=== PATIENT | male | born 1950 | race African-American/Black ===

== ENCOUNTER 2021-05-27 12:14 | Outpatient (CLI) | payer MEDICARE ==
[2021-05-27 13:27] LABS: Hemoglobin 14.7 g/dL (13.5-17.5); Mean Corpuscular HGB CONC 31.5 g/dL (32.0-36.0); Mean Corpuscular Hemoglobin 29.5 pg (27.0-33.0); Mean Corpuscular Volume 93.6 fl (81.2-95.1); Platelet Count 217 10x3/uL (150-450); Red Blood Cell (RBC) Count 4.98 10x6/uL (4.32-5.72); White Blood Cell (WBC) Count 7.4 10x3/uL (3.5-10.5)
[2021-05-27 13:31] LABS: Bilirubin Neg (Negative); Blood, Urine 10 (Negative); Clarity Clear (Clear); Glucose, Urine (Dipstick) Normal (Negative); Ketone, Urine Negative (Negative); Leukocyte 25 (Negative); Nitrite Negative (Negative); Protein, Urine (Dipstick) Negative (Neg-Trace); Urobilinogen Normal mg/dL (Less than 2)
[2021-05-27 13:46] LABS: Anion Gap 11 mmol/L (10-20); BUN (Urea Nitrogen) 15 mg/dL (8.4-25.7); Calc. Creatinine Clearance 0 mL/min (70-130); Calcium 9.2 mg/dL (7.8-10.44); Carbon Dioxide 26 mmol/L (23-31); Chloride 105 mmol/L (98-107); Glucose 123 mg/dL (80-115); Potassium 4.1 mmol/L (3.5-5.1); Sodium 138 mmol/L (136-145)
[2021-05-27 13:53] LABS: Bacteria/HPF None Seen HPF (None Seen); RBC/HPF 0-3 HPF (0-3); Squamous Epithelial 0-3 HPF (0-3)
[2021-05-28 01:34] LABS: SARS-CoV-2 PCR by NAA Not Detected (NotDetected)
== END 2021-05-27 12:15 | disposition home or self-care (01) ==
LOC: LABBT 12:14
PROVIDERS: ATTEND Urology
DX: Z01.818 Encounter for other preprocedural examination (principal); E29.1 Testicular hypofunction; N52.01 Erectile dysfunction due to arterial insufficiency; N40.1 Benign prostatic hyperplasia with lower urinary tract symptoms; Z20.822 Contact with and (suspected) exposure to COVID-19; R30.0 Dysuria
CPT/HCPCS: 80048; 81001; 85027; 87086; 93005; U0003; U0005; 93010

== ENCOUNTER 2021-06-01 06:16 | Day surgery (SDC) | payer MEDICARE ==
[2021-05-26 10:23] VITALS: BMI 33.6
[2021-06-01] MEDS ORDERED: Levofloxacin 500 mg/D5W 100 ml Premix Bag ONE (06:32)
[2021-06-01] MEDS ORDERED: Promethazine HCl 25 MG/ML VIAL ONE ×3 (06:35→13:24)
[2021-06-01] MEDS ORDERED: Fentanyl 250 MCG/5 ML VIAL ONE (06:35)
[2021-06-01] MEDS ORDERED: Ketorolac Tromethamine 30 MG/ML VIAL ONE (07:23)
[2021-06-01] MEDS ORDERED: PROPOFOL 200 MG/20 ML VIAL ONE (07:23)
[2021-06-01] MEDS ORDERED: Ondansetron PF 4 MG/2 ML Vial ONE ×2 (07:23→10:25)
[2021-06-01] MEDS ORDERED: Lidocaine 1% PF 5 ML VIAL ONE (07:23)
[2021-06-01] MEDS ORDERED: Dexamethasone 20 MG/5 ML VIAL ONE (07:23)
[2021-06-01] MEDS ORDERED: Labetalol HCl 100 MG/20 ML VIAL ONE (09:10)
[2021-06-01] MEDS ORDERED: Oxybutynin 5 MG TAB ONE (09:14)
[2021-06-01] MEDS ORDERED: Phenazopyridine HCl 100 MG TAB ONE (09:14)
[2021-06-01] MEDS ORDERED: Fentanyl 100 MCG/2 ML VIAL ONE (09:26)
== END 2021-06-01 15:05 | disposition home or self-care (01) ==
LOC: SDC 06:16
PROVIDERS: ATTEND Urology
PROC: 0VT08ZZ Resection of Prostate, Via Natural or Artificial Opening Endoscopic (ICD-10-PCS; principal; 2021-06-01)
DX: N40.1 Benign prostatic hyperplasia with lower urinary tract symptoms (principal); N13.8 Other obstructive and reflux uropathy; N32.89 Other specified disorders of bladder; E29.1 Testicular hypofunction; R30.0 Dysuria; Z79.811 Long term (current) use of aromatase inhibitors; Z79.899 Other long term (current) drug therapy; Z88.6 Allergy status to analgesic agent; Z88.8 Allergy status to other drugs, medicaments and biological substances
CPT/HCPCS: 88305; J1100; J1885; J1956; J2405; J2550; J2704; J3010